=== PATIENT | male | born 1945 | race Caucasian/White ===

== ENCOUNTER → 2018-04-19 09:13 | Outpatient (CLI) | payer OTHER, SELFPAY ==
[2018-04-19 11:24] LABS: Add Manual Diff / Slide Review NO; Basophils Percent Auto 0.2 % (0-2); Eosinophils Percent Auto 1.3 % (2-4); Hematocrit 41.1 % (41-53); Hemoglobin 13.8 g/dL (13.5-17.5); Lymphocytes Percent Auto 12.7 % (25-40); Mean Corpuscular HGB Conc 33.5 % (30-36); Mean Corpuscular Hemoglobin 32.1 PG (26-34); Mean Corpuscular Volume 95.6 fL (80-100); Monocytes Percent Auto 8.7 % (3-14); Neutrophils Absolute Auto 7700 /uL (3000-5900); Neutrophils Percent Auto 77.1 % (50-75); Platelet Count 183 X10^3/uL (150-400); Red Cell Distribution Width 13.4 % (11.6-14.8)
[2018-04-19 12:00] LABS: Alanine Aminotransferase 22 IU/L (21-72); Albumin 3.9 g/dL (3.5-5.0); Albumin Globulin Ratio 1.4 (1.0-2.8); Alkaline Phosphatase 89 U/L (38-126); Aspartate Aminotransferase 23 IU/L (17-59); BUN Creatinine Ratio 21.8 (6-22); Bilirubin Total 1.2 mg/dL (0.2-1.3); Blood Urea Nitrogen 24 mg/dL (9-20); Calcium 9.5 mg/dL (8.4-10.2); Carbon Dioxide 33 mmol/L (22-32); Chloride 102 mmol/L (98-107); Cholesterol 174 mg/dL (140-199); Estimated Glomerular Filt Rate > 60.0 mL/min (>60); Globulin 2.8 g/dL (1.7-4.1); Glucose 101 mg/dL (80-110); HDL Cholesterol 74 mg/dL (40-60); HEMOLYSIS < 15 (0-50); LDL Cholesterol Calculated 73 mg/dL (<100); Potassium 4.7 mmol/L (3.4-5.1); Sodium 144 mmol/L (137-145); Total Protein 6.7 g/dL (6.3-8.2); Triglycerides 134 mg/dL (35-150); Uric Acid 7.2 mg/dL (3.5-8.5)
[2018-04-19 12:08] LABS: Free T3, Triiodothyronine Free 3.54 pg/mL (2.77-5.27); Free T4, Direct Thyroxine 1.12 ng/dL (0.78-2.19)
[2018-04-19 12:22] LABS: Thyroid Stimulating Hormone 0.96 uIU/mL (0.47-4.68)
[2018-04-19 12:25] LABS: Prostate Specific Antigen Scrn 3.18 ng/mL (0.1-4.0)
== END ==
PROVIDERS: PCP Family Medicine; Visit Provider Family Medicine
DX: I48.91 Unspecified atrial fibrillation (principal)
CPT/HCPCS: 36415; 80053; 80061; 84439; 84443; 84481; 84550; 85025; G0103

== ENCOUNTER 2018-04-30 23:23 | Emergency (ER) | payer OTHER, SELFPAY ==
--- NOTE | 2018-04-30 23:26 | DI.RAD.S_ITS ---
PROCEDURE: XR ANKLE RT MIN 3V INDICATIONS: fall with ankle pain, heard a pop TECHNIQUE: 3 views of the ankle were acquired. COMPARISON: None. FINDINGS: Bones: No fractures or dislocations. Ankle mortise is normally aligned. No suspicious bony lesions. Calcaneal bone spurs. Soft tissues: No tibiotalar joint effusion. Achilles tendon appears normal. Soft tissue swelling is noted and ligamentous injury cannot be excluded. IMPRESSION: No fracture. No acute osseous lesion. If symptoms and/or clinical suspicion for pathology persists, further assessment with repeat radiographs (7-10 days) or advanced imaging (e.g. CT, MRI or bone scan) may be helpful. Dictated by: Kia Sales MD, PhD on 05/01/2018 at 8:42 Approved by: Kia Sales MD, PhD on 05/01/2018 at 8:43
[2018-04-30 23:32] VITALS: BP 148/84; PULSE 80; RESP 16; TEMP 36.6; O2SAT 94; BMI 24.3
--- NOTE | 2018-04-30 23:42 | ED_ITS ---
HPI - Extremity Injury (Lower) General Chief Complaint: Extremity Injury, Lower Stated Complaint: GLF, Rt Ankle Pain Time Seen by Provider: 04/30/18 23:26 Source: patient and family Mode of arrival: ambulatory Limitations: no limitations History of Present Illness HPI Narrative: 72-year-old former smoker with extensive cardiac history, on Coumadin presents by EMS for evaluation of right ankle pain. The patient slipped and fell and heard a pop in his ankle. He denies any head neck or back injury or pain. He has full recall of the event. He denies any chest pain or shortness of breath. He denies any symptoms bleeding to his fall states he was purely mechanical. He denies any numbness, tingling or weakness. He did not try to ambulate prior to contacting EMS. MD complaint: ankle injury Onset (ago): hour(s) Type of Injury: inversion Place: home Severity: mild Relieving factors: nothing Exacerbating factors: weight bearing and movement Context: fall Associated symptoms: snap/pop sensation Other symptoms: none Related Data Home Medications Medication Instructions Recorded Confirmed CHOLECALCIFEROL (VITAMIN D) 2,000 iu PO #0 08/17/11 04/09/18 Previous Rx's Medication Instructions Recorded [LIDOCAINE PATCH] 4 % TD PRN PRN #15 patch 08/07/16 Disabled Parking Permit 15ml #1 01/24/17 duloxetine [Cymbalta] 30 mg PO QDAY #30 cap 03/30/17 furosemide 40 mg PO QDAY #90 tab 07/31/17 [DICLOFENAC 10% GEL] gm TOPICAL BID #60 gm 10/10/17 ipratropium-albuterol [Combivent 1 puff INH QID PRN #1 inh 10/20/17 Respimat] albuterol sulfate [Proventil HFA] 1 - 2 puff INH Q6HP PRN #1 inh 10/26/17 hydrocodone 7.5 mg-acetaminophen See Label Instructions PO SEE 03/05/18 325 mg tablet INSTRUCTIONS PRN #120 tab warfarin 3 mg tablet 3 mg PO QDAY #90 tab 03/08/18 allopurinol 100 mg tablet 100 mg PO QDAY #90 tab 03/18/18 lisinopril 10 mg tablet 30 mg PO QDAY #90 tab 03/26/18 carvedilol 12.5 mg tablet 12.5 mg PO BID #270 tab 04/09/[address] #1 [id number] 04/09/18 tamsulosin 0.4 mg capsule 0.8 mg PO QDAY #90 cap 04/09/18 hydrocodone 10 mg-acetaminophen 1 tab PO Q4-6H PRN #90 tab 04/18/18 325 mg tablet lovastatin 20 mg PO HS #90 tab 04/24/18 Allergies Allergy/AdvReac Type Severity Reaction Status Date / Time No Known Drug Allergies Allergy Verified 04/09/18 10:33 Review of Systems Review of Systems All systems reviewed & are unremarkable except as noted in HPI and below Constitutional Denies chills, Denies fever(s), Denies lethargy and Denies weakness Eyes Denies change in vision, Denies eye discharge, Denies irritation and Denies loss of vision ENT Ears, Nose, Mouth, and Throat: Denies change in voice, Denies neck pain and Denies sore throat Cardiovascular Denies chest pain, Denies irregular heart rhythm, Denies lightheadedness, Denies palpitations, Denies dyspnea, Denies dyspnea on exertion and Denies orthopnea Respiratory Denies cough, Denies dyspnea, Denies dyspnea on exertion and Denies wheezing Gastrointestinal Gastrointestinal: Denies abdominal pain, Denies change in bowel habits, Denies diarrhea, Denies nausea and Denies vomiting Genitourinary Denies hematuria, Denies flank pain, Denies urinary incontinence and Denies urinary urgency Musculoskeletal Reports joint swelling, Reports limited range of motion and Denies neck pain Integumentary/Breasts Denies pruritus, Denies erythema, Denies rash and Denies wounds Neurologic Denies confusion, Denies loss of vision and Denies weakness Psychiatric Denies anxiety, Denies confusion, Denies depression, Denies homicidal ideation and Denies suicidal ideation Endocrine Denies palpitations Hematologic/Lymphatic Denies easy bruising Allergic/Immunologic Denies wheezing [facility] Medical History Acne (Chronic ~1956) Atrial fibrillation (Chronic ~2005) Diastolic heart failure (Chronic ~2009) Eczema (Chronic ~1976) GI bleeding (Chronic ~2012) Gout (Chronic ~2006) Recurrent sinusitis (Chronic ~2004) Skin cancer (Chronic ~2012) Vision disorder (Chronic ~1951) Chicken pox (Resolved ~1958) Fractures (Resolved ~1987) Herpes (Resolved ~1999) Mumps (Resolved ~1966) Surgical History Anesthesia (Resolved) Pacemaker (Resolved ~2010) History of hip replacement (~2004) History of hip replacement (~2005) History of tonsillectomy (~1951) Status post appendectomy (~1954) Status post hernia repair (~2010) Family History Father Heart disease Stroke Grandfather Heart disease Mother Heart disease Hypertension Grandfather Heart disease Grandmother Heart disease Brother No problems noted. Social History Smoking Status: Former smoker Exam Narrative Exam Narrative: GEN: AOx3 and in mild distress, GCS 15 HEAD: no swelling or tenderness EYES: Pupils are equal, round, and reactive to light and accommodation. Extraoccular muscles are intact bilaterally. There is no subconjunctival hemorrhage or exudate. CHEST: Lungs are clear to auscultation bilaterally and free of wheezes, rales, or rhonchi. Heart rate is regular rhythm, there are no murmurs, clicks, rubs, or gallops. There is no chest wall tenderness. ABD: Abdomen is soft and nontender. There is no guarding or rebound. Bowel sounds are normal in all 4 quadrants. There is no mass or organomegaly. EXT: Full but painful range of motion of right ankle. No obvious deformity, swelling. No numbness, tingling. Dorsalis pedis present. Tender to palpate over lateral malleolus. Chronic bilateral LE edema SKIN: Warm, pink, and dry. No erythema or rash Initial Vital Signs Initial Vital Signs: Vital Signs Temperature 97.8 F 04/30/18 23:32 Pulse Rate 80 04/30/18 23:32 Respiratory Rate 16 04/30/18 23:32 Blood Pressure 148/84 H 04/30/18 23:32 Pulse Oximetry 94 04/30/18 23:32 Procedures Orthopedic Splinting/Casting Injury #1: Side: right Lower Extremity Injury Location: ankle Lower Extremity Immobilizer: Ari wrap Course Orders Ordered: ED Orders 04/30/18 23:26 XR ankle RT min 3V Stat Vital Signs - 8 hr 10/09/18 23:32 Temperature 97.8 F Pulse Rate 80 Respiratory Rate 16 Blood Pressure 148/84 H Pulse Oximetry 94 MDM - Extremity Injury (Lower) Differential Diagnosis Likely ankle sprain and strain and ankle fracture Medical Records Attestation: I reviewed the patient's medical records. Lab Data Attestation: I reviewed the patient's lab results. Imaging Data Ankle Xray: Attestation: I personally reviewed and interpreted this imaging study as follows: My impression: No bony abnormality Discharge Plan Departure Patient Disposition: Home Clinical Impression: Ankle sprain Instructions: DI for Ankle Sprain Activity Restrictions/Additional Instructions: *You have been diagnosed with [ Right ankle sprain ] *What to do: *Take medications as directed: tylenol or motrin for pain *Follow up with your primary care provider in 2-3 days, call for an appointment. Let them know you were seen in the Emergency Department and that we ask that you be seen in follow up *Return to ER if you should have any new, worsening or concerning symptoms Prescriptions: No Action CHOLECALCIFEROL (VITAMIN D) 2,000 iu PO Qty: 0 RF: 0 [LIDOCAINE PATCH] 4 % TD PRN PRNQty: 15 RF: 5 Disabled Parking Permit Qty: 1 RF: 0 duloxetine [Cymbalta] 30 MG capsule,delayed release(DR/EC) 30 mg PO QDAY Qty: 30 RF: 5 furosemide 40 MG tablet 40 mg PO QDAY Qty: 90 RF: 3 [DICLOFENAC 10% GEL] Topical BID Qty: 60 RF: 0 ipratropium-albuterol [Combivent Respimat] 4 GM mist 1 puff INH QID PRNQty: 1 RF: 0 albuterol sulfate [Proventil HFA] 90 MCG/PUFF HFA aerosol inhaler 1 - 2 puff INH Q6HP PRNQty: 1 RF: 0 hydrocodone-acetaminophen [Gattman] 7.5-325 mg tablet See Label Instructions PO SEE INSTRUCTIONS PRN (Reason: pain) Qty: 120 RF: 0 warfarin [Coumadin] 3 mg tablet 3 mg PO QDAY Qty: 90 RF: 0 allopurinol 100 mg tablet 100 mg PO QDAY Qty: 90 RF: 0 lisinopril 10 mg tablet 30 mg PO QDAY Qty: 90 RF: 0 hydrocodone-acetaminophen 10-325 mg tablet 1 tab PO Q4-6H PRN (Reason: pain) Qty: 90 RF: 0 lovastatin 20 mg tablet 20 mg PO HS Qty: 90 RF: [address] Qty: 1 RF: 0 carvedilol [Coreg] 12.5 mg tablet 12.5 mg PO BID Qty: 270 RF: 3 tamsulosin [Flomax] 0.4 mg capsule 0.8 mg PO QDAY Qty: 90 RF: 3 Referrals: Michele Adams MD [Primary Care Provider] -
--- NOTE | 2018-05-02 19:43 | PC.NURSE ---
Attempted follow up phone call. No answer at this time.
== END 2018-05-01 00:10 | disposition home or self-care (01) ==
PROVIDERS: Emergency Provider Emergency Medicine; PCP Family Medicine
DX: S93.401A Sprain of unspecified ligament of right ankle, initial encounter (principal); W01.0XXA Fall on same level from slipping, tripping and stumbling without subsequent striking against object, initial encounter
CPT/HCPCS: 73610; 99282; 99283

== ENCOUNTER → 2018-06-07 08:48 | Outpatient (CLI) | payer OTHER, SELFPAY ==
[2018-06-07 10:28] LABS: INR 1.8 (0.9-1.3); Prothrombin Time 19.5 SECONDS (10.1-12.7)
== END ==
PROVIDERS: PCP Family Medicine; Visit Provider Family Medicine
DX: I48.91 Unspecified atrial fibrillation (principal); Z79.01 Long term (current) use of anticoagulants
CPT/HCPCS: 36415; 85610

== ENCOUNTER → 2018-12-26 09:10 | Outpatient (CLI) | payer OTHER, SELFPAY ==
[2018-12-26 11:56] LABS: Alanine Aminotransferase 14 IU/L (21-72); Albumin 4.3 g/dL (3.5-5.0); Albumin Globulin Ratio 1.6 (1.0-2.8); Alkaline Phosphatase 77 U/L (38-126); Aspartate Aminotransferase 28 IU/L (17-59); BUN Creatinine Ratio 18.3 (6-22); Bilirubin Total 1.1 mg/dL (0.2-1.3); Blood Urea Nitrogen 22 mg/dL (9-20); Calcium 9.4 mg/dL (8.4-10.2); Carbon Dioxide 33 mmol/L (22-32); Chloride 102 mmol/L (98-107); Cholesterol 216 mg/dL (140-199); Globulin 2.7 g/dL (1.7-4.1); Glucose 144 mg/dL (80-110); HDL Cholesterol 66 mg/dL (40-60); HEMOLYSIS < 15 (0-50); LDL Cholesterol Calculated 115 mg/dL (<100); Potassium 4.3 mmol/L (3.4-5.1); Sodium 142 mmol/L (137-145); Triglycerides 173 mg/dL (35-150)
== END ==
PROVIDERS: Family Provider Family Medicine; PCP Family Medicine; Visit Provider Internal Medicine Cardiovascular Disease
DX: E78.5 Hyperlipidemia, unspecified (principal)
CPT/HCPCS: 36415; 80053; 80061

== ENCOUNTER → 2019-11-17 08:56 | Outpatient (CLI) | payer OTHER, SELFPAY ==
[2019-11-17 09:30] LABS: Cholesterol 177 mg/dL (140-199); HDL Cholesterol 57 mg/dL (40-60); LDL Cholesterol Calculated 93 mg/dL (<100); Triglycerides 137 mg/dL (35-150)
== END ==
PROVIDERS: Family Provider Family Medicine; PCP Family Medicine; Referring Provider Family Medicine; Visit Provider Family Medicine
DX: E78.5 Hyperlipidemia, unspecified (principal)
CPT/HCPCS: 36415; 80061

== ENCOUNTER → 2019-12-11 09:11 | Outpatient (CLI) | payer OTHER, SELFPAY ==
--- NOTE | 2019-12-11 09:13 | DI.ECHO.S_ITS ---
[facility] +---------+ [facility] +---------+ : : [address] : : : : [id number] : : : : Phone: [phone]---------+ Echocardiogram Report + + :Name: REJI GARCIA Study Date: 12/11/2019 Height: 69 in : :[facility] Weight: 168 lb : : Gender: Male BSA: 1.9 m2 : :: 1945 Age: 74 yrs BP: 142/85 mmHg: :Reason For Study: atrial fibrillation : :Ordering Physician: Dr. 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 Left ventricular ejection fraction is estimated to be 45 +/- 5%. There has been no significant change in LVEF since the previous exam. The right ventricle is mildly dilated. The right ventricular systolic function is normal. There is a pacemaker lead in the right ventricle. There is moderate mitral regurgitation. Compared to the prior echo study, there has been no change in the severity of mitral regurgitation. There is moderate tricuspid regurgitation. Compared to the prior echo exam, there has been a decrease in TR severity. The right ventricular systolic pressure is estimated to be at least 26 mmHg based on an estimated right atrial pressure of 3 mm Hg. Compared to the prior echo exam, there has been a decrease in the severity of pulmonary hypertension. Procedure: A two-dimensional transthoracic echocardiogram with color flow and Doppler was performed. The study quality was technically adequate. Comparison is made with the echocardiogram of 09/13/2017. The patient was in atrial fibrillation with heart rates between 61-75 bpm during the exam. Left Ventricle: The left ventricle is normal in size and wall thickness. There is no thrombus. Left ventricular ejection fraction is estimated to be 45 +/- 5%. There has been no significant change since the previous exam. There is a slight dyssynchronous contraction pattern due to the paced rhythm. There is mild global hypokinesis of the left ventricle. Diastolic function could not be accurately assessed due to atrial fibrillation. Right Ventricle: There is a pacemaker lead in the right ventricle. The right ventricle is mildly dilated. The right ventricular systolic function is normal. Atria: Both atria are severely dilated. Both atria have remained unchanged in size since the prior echo exam. There is no Doppler evidence for an interatrial shunt. Mitral Valve: The mitral valve leaflets appear mildly thickened, but open well. There is mild mitral annular calcification. There is moderate mitral regurgitation. Compared to the prior echo study, there has been no change in the severity of mitral regurgitation. Aortic Valve: The aortic valve is trileaflet. The aortic valve opens well. The aortic valve is slightly calcified. There is no aortic valve stenosis. There is mild aortic regurgitation. Tricuspid Valve: The tricuspid annulus is dilated. There is moderate tricuspid regurgitation. The right ventricular systolic pressure is estimated to be at least 26 mmHg based on an estimated right atrial pressure of 3 mm Hg. Compared to the prior echo exam, there has been a decrease in TR severity. Compared to the prior echo exam, there has been a decrease in the severity of pulmonary hypertension. Pulmonic Valve: The pulmonic valve is not well seen, but is grossly normal. There is trace pulmonic regurgitation. Great Vessels: The aortic root is mildly dilated. The ascending aorta is mildly enlarged. There has been no significant change since the previous study. The IVC is of normal diameter and collapses greater than 50% with a sniff. This suggests a low right atrial pressure of 3 mm Hg. Pericardium/ Pleura There is no pericardial effusion. There is no pleural effusion. MMode/2D Measurements & Calculations LVIDd: 5.3 cm LVOT diam: 2.1 cm LVIDs: 3.9 cm Ao root diam: 4.3 cm FS: 24.9 % asc Aorta Diam: 3.6 cm EPSS: 1.3 cm Ao Arch Diam (Prox Trans): 2.6 cm IVSd: 0.99 cm LVPWd: 0.72 cm LV lopez. diameter/BSA (cm/m^2): 2.7 LV sys. diameter/BSA (cm/m^2): 2.1 LA A2 area: 37.5 cm2 RA long axis: 7.2 cm LA A4 area: 29.9 cm2 RA area: 34.3 cm2 LA length (vol): 6.9 cm RA vol: 137.8 ml LA vol: 137.4 ml RA : 71.8 ml/m2 LA vol index: 71.7 ml/m2 IVC diam: 1.8 cm RVD1 (basal): 4.2 cm TAPSE: 2.5 cm Doppler Measurements & Calculations Ao V2 max: 91.8 cm/sec LVOT Max Chuy: 63.0 cm/sec Ao V2 mean: 56.6 cm/sec LV V1 max P.6 mmHg Ao max P.4 mmHg LV V1 VTI: 12.0 cm Ao mean P.6 mmHg HARESH(I,D): 2.6 cm2 Ao V2 VTI: 16.1 cm HARESH(V,D): 2.4 cm2 sev ratio: 0.74 HARESH indexed to BSA (cm^2/m^2): 1.4 MV E max chuy: 79.9 cm/sec TR max chuy: 240.5 cm/sec MV A max chuy: 1.9 cm/sec TR max P.2 mmHg MV E/A: 41.4 PA V2 max: 53.8 cm/sec Med Peak E' Chuy: 12.9 cm/sec PA V2 mean: 33.8 cm/sec E/E' med: 6.2 PA mean P.55 mmHg Lat Peak E' Chuy: 14.0 cm/sec E/E' lat: 5.7 E/e' average: 5.9 MV dec time: 0.16 sec SV(LVOT): 42.5 ml Reading Physician:12:48 PM
== END ==
PROVIDERS: Family Provider Family Medicine; PCP Family Medicine; Referring Provider Family Medicine; Visit Provider Family Medicine
DX: I08.3 Combined rheumatic disorders of mitral, aortic and tricuspid valves (principal); I77.810 Thoracic aortic ectasia; I48.91 Unspecified atrial fibrillation; Z95.0 Presence of cardiac pacemaker
CPT/HCPCS: 93306

== ENCOUNTER → 2020-02-23 10:39 | Outpatient (CLI) | payer OTHER, SELFPAY ==
[2020-02-23 11:13] LABS: Add Manual Diff / Slide Review NO; Basophils Absolute Auto 0 /uL (0-100); Basophils Percent Auto 0.7 % (0-2); Eosinophils Absolute Auto 300 /uL (0-450); Hematocrit 41.7 % (41-53); Hemoglobin 14.1 g/dL (13.5-17.5); Lymphocytes Absolute Auto 1500 /uL (1100-4500); Lymphocytes Percent Auto 25.1 % (25-40); Mean Corpuscular HGB Conc 33.9 % (30-36); Mean Corpuscular Hemoglobin 32.4 PG (26-34); Mean Corpuscular Volume 95.8 fL (80-100); Monocytes Absolute Auto 800 /uL (0-900); Monocytes Percent Auto 12.3 % (3-14); Neutrophils Absolute Auto 3500 /uL (1500-7000); Neutrophils Percent Auto 56.9 % (50-75); Platelet Count 127 X10^3/uL (150-400); Red Blood Cell Count 4.35 X10^6/uL (4.5-5.9); Red Cell Distribution Width 14.1 % (11.6-14.8); White Blood Cell Count 6.1 X10^3/uL (4.5-11.0)
[2020-02-23 11:50] LABS: Alanine Aminotransferase 15 IU/L (<50); Albumin 4.2 g/dL (3.5-5.0); Albumin Globulin Ratio 1.8 (1.0-2.8); Alkaline Phosphatase 73 U/L (38-126); Amylase 67 U/L (30-110); Aspartate Aminotransferase 27 IU/L (17-59); BUN Creatinine Ratio 21.6 (6-22); Bilirubin Total 1.1 mg/dL (0.2-1.3); Blood Urea Nitrogen 24 mg/dL (9-20); Calcium 9.3 mg/dL (8.4-10.2); Carbon Dioxide 30 mmol/L (22-32); Chloride 104 mmol/L (98-107); Estimated Glomerular Filt Rate > 60.0 mL/min (>60); Globulin 2.3 g/dL (1.7-4.1); Glucose 111 mg/dL (80-110); HEMOLYSIS < 15 (0-50); Lipase 110 U/L (23-300); Sodium 140 mmol/L (137-145); Total Protein 6.5 g/dL (6.3-8.2)
== END ==
PROVIDERS: Family Provider Family Medicine; PCP Family Medicine; Referring Provider Family Medicine; Visit Provider Family Medicine
DX: R10.9 Unspecified abdominal pain (principal)
CPT/HCPCS: 36415; 80053; 82150; 83690; 85025

== ENCOUNTER → 2020-03-03 08:30 | Outpatient (CLI) | payer OTHER, SELFPAY ==
--- NOTE | 2020-03-03 09:08 | DI.CT.S_ITS ---
PROCEDURE: CT ABDOMEN PELVIS W CON INDICATIONS: Left flank pain TECHNIQUE: After the administration of intravenous contrast, 5 mm thick sections acquired from the diaphragm to the symphysis. 5 mm coronal and sagittal reformats were acquired. For radiation dose reduction, the following was used: automated exposure control, adjustment of mA and/or kV according to patient size. COMPARISON: None. FINDINGS: Image quality: Excellent. ABDOMEN: Lung bases: Lung bases are clear. Heart size is enlarged. Pacemaker leads are noted. Solid organs: Liver is normal in size and enhancement. Mild hepatic steatosis is seen. Gallbladder is within normal limits. Biliary system is non dilated. Pancreas enhances normally. Spleen is normal in size and enhancement. No adrenal nodules. Kidneys demonstrate normal size and enhancement, without hydronephrosis. Multiple bilateral renal cysts are seen measures up to 3 centimeters in size in lower pole of right kidney and up to 2.8 centimeters in size in lower pole of left kidney. Peritoneum and bowel: Bowel loops demonstrate normal wall thickness and caliber. No free fluid or air. There is a small hiatal hernia. Mild fecal stasis in the colon is seen. [id number] colonic diverticulosis is noted, no CT evidence of acute diverticulitis. Nodes and vessels: No retroperitoneal or mesenteric adenopathy by size criteria. Aorta and inferior vena cava are normal in size. Moderate amount of atherosclerotic calcifications are seen. Miscellaneous: No ventral hernias. PELVIS: Genitourinary: Urinary bladder is distended with mild diffuse bladder wall thickening and multiple bladder diverticuli bilaterally. No discrete bladder wall mass is seen. Miscellaneous: No inguinal hernias or adenopathy. Bones: Patient is status post bilateral total hip arthroplasty with significant beam hardening artifacts limits evaluation of pelvis. No acute fracture or dislocation. No suspicious bony lesions. No vertebral body compression fractures. Degenerative disc disease throughout lower thoracic and lumbar spine is seen. Grade 1 anterolisthesis of L4 on L5 is noted. IMPRESSION: 1. Bilateral renal cysts. No obstructing stone or hydronephrosis. Normal appearing bilateral ureters. 2. Distended urinary bladder with mild diffuse bladder wall thickening and multiple bladder wall diverticuli suggestive of chronic urinary outlet obstruction. Urological correlation is recommended. 3. No bowel obstruction. No free fluid or free air. Small hiatal hernia and mild constipation. Colonic diverticulosis with no evidence of acute diverticulitis. 4. Hepatic steatosis. 5. Prior bilateral total hip arthroplasty. Dictated by: Seymour Ribeiro M.D. on 03/03/2020 at 9:29 Approved by: Seymour Ribeiro M.D. on 03/03/2020 at 9:45
== END ==
PROVIDERS: Family Provider Family Medicine; PCP Family Medicine; Referring Provider Family Medicine; Visit Provider Family Medicine
DX: R10.9 Unspecified abdominal pain (principal); N28.1 Cyst of kidney, acquired; N32.89 Other specified disorders of bladder; K44.9 Diaphragmatic hernia without obstruction or gangrene; K59.00 Constipation, unspecified; K57.90 Diverticulosis of intestine, part unspecified, without perforation or abscess without bleeding; K76.0 Fatty (change of) liver, not elsewhere classified; Z96.643 Presence of artificial hip joint, bilateral
CPT/HCPCS: 74177; Q9967

== ENCOUNTER → 2020-03-12 09:08 | Outpatient (CLI) | payer OTHER, SELFPAY ==
[2020-03-13 09:30] LABS: COVID19 Sendout Not Detected (Not Detect)
== END ==
PROVIDERS: Family Provider Family Medicine; PCP Family Medicine; Visit Provider Physician Assistant
DX: Z11.59 Encounter for screening for other viral diseases (principal)
CPT/HCPCS: 87635

== ENCOUNTER 2020-03-15 06:42 | Day surgery (SDC) | payer OTHER, SELFPAY ==
[2020-03-15 07:14] VITALS: BP 165/91; PULSE 61; RESP 17; TEMP 36.3; O2SAT 99; BMI 25.8
[2020-03-15] MEDS: LACTATED RINGERS 1,000 ML 200 ML IV (07:33)
--- NOTE | 2020-03-15 07:44 | P.HP_ITS ---
History of Present Illness History of Present Illness Date Patient Seen: 03/15/20 Time Patient Seen: 07:44 Chief complaint: [facility] Narrative: The patient presents for colorectal sreening. Their most recent colonoscopy was 6 years ago that demonstrated adenomatous polyps which were endoscopically resected. No personal or family history of colon cancer. On further history denies any recent gastrointestinal symptoms. No nausea, vomiting, abdominal pain, loss of appetite, unexplained weight loss, change in bowel habits, diarrhea, constipation, melena, hematochezia, or bright red blood per rectum. Patient History Medical History Acne (Chronic ~1956) Atrial fibrillation (Chronic ~2005) Chicken pox (Resolved ~1958) Diastolic heart failure (Chronic ~2009) Eczema (Chronic ~1976) Fractures (Resolved ~1987) GI bleeding (Chronic ~2012) Gout (Chronic ~2006) Herpes (Resolved ~1999) Mumps (Resolved ~1966) Recurrent sinusitis (Chronic ~2004) Skin cancer (Chronic ~2012) Vision disorder (Chronic ~1951) Surgical History Anesthesia (Resolved) History of hip replacement (~2004) History of hip replacement (~2005) History of tonsillectomy (~1951) Pacemaker (Resolved ~2010) Status post appendectomy (~1954) Status post hernia repair (~2010) Family & Social History Family History Father Heart disease Stroke Grandfather Heart disease Mother Heart disease Hypertension Grandfather Heart disease Grandmother Heart disease Brother No problems noted. Social History: household members significant other Tobacco & Substance use: Smoking Status Former smoker alcohol intake current alcohol intake frequency 0-2 drinks per day Substance Use Type does not use Meds Home Medications and Allergies Home Medications Medication Instructions Recorded Confirmed Type cholecalciferol (vitamin D3) 50 mcg PO DAILY #0 08/17/11 03/15/20 History [Vitamin D3] duloxetine [Cymbalta] 30 mg PO QDAY #30 cap 03/30/17 03/15/20 Rx lisinopril 10 mg tablet 30 mg PO QDAY #90 tab 06/24/18 03/15/20 Rx Disabled [address] permit #1 ea 04/17/19 02/23/20 Rx allopurinol 100 mg tablet See Rx Instructions .ROUTE 04/21/19 03/15/20 Rx .COMPLEX #90 tablet carvedilol 12.5 mg tablet See Rx Instructions .ROUTE 08/11/19 03/15/20 Rx .COMPLEX #270 tablet tamsulosin 0.4 mg capsule 0.8 mg PO QDAY #90 cap 11/14/19 03/15/20 Rx warfarin 3 mg tablet 3 mg PO QDAY #90 tab 11/14/19 03/15/20 Rx furosemide 40 mg tablet 80 mg PO QAM #90 tab 11/21/19 03/15/20 Rx lovastatin 20 mg tablet See Rx Instructions .ROUTE 02/06/20 03/15/20 Rx .COMPLEX #90 tablet hydrocodone 10 mg-acetaminophen 1 tab PO Q4-6H PRN #90 tab 02/08/20 03/15/20 Rx 325 mg tablet cyanocobalamin (vitamin B-12) 1,000 mcg PO DAILY 03/15/20 03/15/20 History [Vitamin B-12] Allergies Allergy/AdvReac Type Severity Reaction Status Date / Time No Known Drug Allergies Allergy Verified 03/15/20 07:07 Review of Systems Review of Systems Narrative: A 10 point review of systems is negative except as noted in the HPI Exam Vital Signs (past 8 hours): - 03/15/20 07:14 Temperature 97.4 F L Pulse Rate 61 Respiratory Rate 17 Blood Pressure 165/91 H Pulse Oximetry 99 Oxygen Delivery Method Room Air Narrative Exam Narrative: General-no acute distress, well nourished adult male HEENT-moist mucous membranes, no scleral icterus Neck-supple, no lymphadenopathy Chest- non labored respirations, clear to auscultation bilaterally Cardiac-regular rate no peripheral edema Abdomen-soft, nontender, non distended Extremities-warm, well perfused Neurological-alert and oriented, no focal deficits Assessment & Plan Assessment and plan (1) Screening for colon cancer: Status: Acute Assessment & Plan narrative: The patient requires colorectal screening and col onoscopy is recommended. Technical details were discussed. Risks, benefits, alternatives explained. Risks including but not limited to myocardial infarction, aspiration, bleeding, pain, missed lesion, incomplete examination, need for further radiographic studies, colonic perforation, and need for major abdominal surgery were discussed. All questions were answered to their satisfaction, and they are in agreement with this plan. COVID-19 COVID-19 status: Negative
[2020-03-15] MEDS: fentaNYL 250 MCG/5 ML INJ IV (08:03)
[2020-03-15] MEDS: MIDAZOLAM 5 MG/5 ML VIAL IV (08:03)
--- NOTE | 2020-03-15 08:14 | PM.OP.ENDO ---
Operative Date/Time/Diagnoses Date of procedure: 03/15/20 Time of procedure: 08:14 Pre-op diagnosis: Screening colonoscopy Post-op diagnosis: same Procedure & Clinicians Study performed: Colonoscopy Same procedure as scheduled: Yes Indications: 74-year-old man last colonoscopy 6 years ago demonstrated adenomatous polyps which were resected. Surgeon: Bairon Cummings Procedure Notes Procedure in detail: Patient placed in left lateral recumbent position. Time out was performed. Procedural sedation was administered with Versed and Fentanyl. Examination began with a thorough inspection of the perianal area there was no evidence of fissures, fistulae, external hemorrhoids or cutaneous malignancy. The colonoscopy scope was then placed into the rectum the the lumen was insufflated with air. The scope was carefully advanced forward. Ultimately the cecum was intubated and confirmed by identification of the ileocecal valve and the confluence of the taenia. The scope was then slowly withdrawn examining colon thoroughly in all directions. In the rectum the rectal columns were identified and retroflexion of the scope was performed for inspection of the distal rectum and anal canal. The colonoscopy was notable for the followin. Quality of the preparation-fair 2. No masses or polyps 3. Garcia diverticulosis Scope withdrawal time: 6 Sedation minutes: 22 Findings: diverticulosis and other findings Specimen(s): none sent Complications: none Impression: Diverticulosis Post-procedure Recommendations: Colonscopy in 10 years and High fiber diet Disposition: same day surgery
[2020-03-15 08:20] VITALS: BP 128/84; PULSE 67; RESP 17; TEMP 36.2; O2SAT 94
[2020-03-15 08:28] VITALS: BP 104/70; PULSE 74; RESP 12; O2SAT 93
[2020-03-15 08:33] VITALS: BP 117/71; PULSE 68; RESP 14; O2SAT 93
[2020-03-15 08:44] VITALS: BP 137/89; PULSE 71; RESP 20; TEMP 36.7; O2SAT 94
--- NOTE | 2020-03-15 09:16 | SUR.PHASEII ---
Verified ok for patient to restart coumadin today with Dr. Cummings.
== END 2020-03-15 09:09 | disposition home or self-care (01) ==
PROVIDERS: Family Provider Family Medicine; PCP Family Medicine; Referring Provider Family Medicine; Visit Provider Surgery
PROC: 0DJD8ZZ Inspection of Lower Intestinal Tract, Via Natural or Artificial Opening Endoscopic (ICD-10-PCS; CPT 45378; principal; 2020-03-15 07:45)
DX: Z12.11 Encounter for screening for malignant neoplasm of colon (principal); Z86.010 Personal history of colon polyps; I48.91 Unspecified atrial fibrillation; K57.30 Diverticulosis of large intestine without perforation or abscess without bleeding
CPT/HCPCS: G0105; 99152; J2250; J3010

== ENCOUNTER → 2020-07-14 10:05 | Outpatient (CLI) | payer OTHER, SELFPAY ==
[2020-07-14 10:55] LABS: BUN Creatinine Ratio 23.9 (6-22); Blood Urea Nitrogen 28 mg/dL (9-20); Calcium 9.4 mg/dL (8.4-10.2); Carbon Dioxide 31 mmol/L (22-32); Chloride 102 mmol/L (98-107); Estimated Glomerular Filt Rate > 60.0 mL/min (>60); Glucose 121 mg/dL (80-110); HEMOLYSIS < 15 (0-50); Magnesium 1.9 mg/dL (1.6-2.3); Potassium 3.6 mmol/L (3.4-5.1); Sodium 139 mmol/L (137-145)
== END ==
PROVIDERS: Family Provider Family Medicine; PCP Student in an Organized Health Care Education/Training Program; Referring Provider Family Medicine; Visit Provider Family Medicine
DX: I10 Essential (primary) hypertension (principal)
CPT/HCPCS: 36415; 80048; 83735

== ENCOUNTER → 2020-09-17 08:32 | Outpatient (CLI) | payer OTHER, SELFPAY ==
[2020-09-17 10:08] LABS: Alanine Aminotransferase 15 IU/L (<50); Albumin 4.1 g/dL (3.5-5.0); Albumin Globulin Ratio 1.5 (1.0-2.8); Alkaline Phosphatase 76 U/L (38-126); Aspartate Aminotransferase 27 IU/L (17-59); BUN Creatinine Ratio 28.7 (6-22); Bilirubin Total 0.9 mg/dL (0.2-1.3); Blood Urea Nitrogen 50 mg/dL (9-20); Calcium 9.1 mg/dL (8.4-10.2); Carbon Dioxide 34 mmol/L (22-32); Chloride 101 mmol/L (98-107); Cholesterol 211 mg/dL (140-199); Estimated Glomerular Filt Rate 38.3 mL/min (>60); Globulin 2.7 g/dL (1.7-4.1); Glucose 107 mg/dL (80-110); HDL Cholesterol 47 mg/dL (40-60); HEMOLYSIS < 15 (0-50); LDL Cholesterol Calculated 111 mg/dL (<100); Magnesium 2.1 mg/dL (1.6-2.3); Potassium 3.8 mmol/L (3.4-5.1); Sodium 138 mmol/L (137-145); Total Protein 6.8 g/dL (6.3-8.2); Triglycerides 263 mg/dL (35-150)
== END ==
PROVIDERS: Family Provider Family Medicine; PCP Student in an Organized Health Care Education/Training Program; Referring Provider Internal Medicine Cardiovascular Disease; Visit Provider Internal Medicine Cardiovascular Disease
DX: I48.20 Chronic atrial fibrillation, unspecified (principal)
CPT/HCPCS: 36415; 80053; 80061; 83735

== ENCOUNTER → 2020-11-30 10:45 | Outpatient (CLI) | payer OTHER, SELFPAY ==
[2020-11-30 11:53] LABS: Blood Urea Nitrogen 22 mg/dL (9-20); Calcium 9.4 mg/dL (8.4-10.2); Carbon Dioxide 24 mmol/L (22-32); Chloride 106 mmol/L (98-107); Estimated Glomerular Filt Rate > 60.0 mL/min (>60); Glucose 100 mg/dL (80-110); HEMOLYSIS < 15 (0-50); Sodium 139 mmol/L (137-145)
== END ==
PROVIDERS: Family Provider Family Medicine; PCP Student in an Organized Health Care Education/Training Program; Referring Provider Student in an Organized Health Care Education/Training Program; Visit Provider Student in an Organized Health Care Education/Training Program
DX: I10 Essential (primary) hypertension (principal); Z79.899 Other long term (current) drug therapy
CPT/HCPCS: 36415; 80048

== ENCOUNTER → 2021-06-07 14:08 | Outpatient (CLI) | payer OTHER, SELFPAY ==
--- NOTE | 2021-06-07 14:09 | DI.ECHO.S_ITS ---
[facility] +---------+ : : [address] : [address] : : : : [id number] : : : : Phone: [phone]+ Echocardiogram Report + + :Name: REJI GARCIA Study Date: 06/07/2021 Height: 69 in : :[facility] ReadingLocation: Weight: 185 lb : : Gender: Male BSA: 2.0 m2 : :: 1945 Age: 75 yrs BP: 144/77 mmHg: :Reason For Study: TRICUSPID REGURGITATION : :Ordering Physician: MIGDALIA, : :ALLYSON Performed By: Lisa Taylor : :Referring: ALLYSON NEGRON : + + Interpretation Summary The left ventricle is normal in size and wall thickness. The ejection fraction is estimated to be 45-50%. There has been no significant change in LVEF since the previous exam. The right ventricle is mildly dilated. There is a pacemaker lead in the right ventricle. The right ventricular systolic function is normal. There is moderate mitral regurgitation. Compared to the prior echo study, there has been no change in the severity of mitral regurgitation. There is moderate tricuspid regurgitation. Compared to the prior echo exam, there has been no change in TR severity. The right ventricular systolic pressure is estimated to be at least 28 mmHg based on an estimated right atrial pressure of 3 mm Hg. The ascending aorta is mildly enlarged. 3.7 cm in diameter. Previously 3.6 cm. Procedure: A two-dimensional transthoracic echocardiogram with color flow and Doppler was performed. The study quality was technically adequate. Comparison is made with the echocardiogram of 12/11/2019. The heart rate ranged between 62-76 bpm during the study. The patient was in atrial fibrillation with controlled ventricular rate during the exam. Left Ventricle: The left ventricle is normal in size and wall thickness. There is no thrombus. The ejection fraction is estimated to be 45-50%. There has been no significant change since the previous exam. There is mild global hypokinesis of the left ventricle. There is a mild dyssynchronous contraction pattern, consistent with a conduction abnormality. E/E' med: 6.6. Diastolic function could not be accurately assessed due to atrial fibrillation. Right Ventricle: The right ventricle is mildly dilated. There is a pacemaker lead in the right ventricle. The right ventricular systolic function is normal. Atria: The left atrium is severely dilated. Both atria have remained unchanged in size since the prior echo exam. There is severe biatrial enlargement. The right atrium is severely dilated. There is no Doppler evidence for an interatrial shunt. Mitral Valve: The mitral valve leaflets appear mildly thickened, but open well. There is mild mitral annular calcification. The mitral valve chordae are thickened and/or calcified. There is moderate mitral regurgitation. Compared to the prior echo study, there has been no change in the severity of mitral regurgitation. Aortic Valve: The aortic valve is slightly calcified. The aortic valve is trileaflet. The aortic valve opens well. There is no aortic valve stenosis. There is mild aortic regurgitation. Compared to the prior echo study, there has been no change in the severity of aortic regurgitation. Tricuspid Valve: The tricuspid valve leaflets are thin and pliable. There is moderate tricuspid regurgitation. The right ventricular systolic pressure is estimated to be at least 28 mmHg based on an estimated right atrial pressure of 3 mm Hg. Compared to the prior echo exam, there has been no change in TR severity. Pulmonic Valve: The pulmonic valve leaflets are thin and pliable; valve motion is normal. There is mild pulmonic regurgitation. Great Vessels: The aortic root is normal size. The ascending aorta is mildly enlarged. The IVC is of normal diameter and collapses greater than 50% with a sniff. This suggests a low right atrial pressure of 3 mm Hg. Pericardium/ Pleura There is no pericardial effusion. There is no pleural effusion. MMode/2D Measurements & Calculations LVIDd: 5.0 cm LVOT diam: 2.4 cm LVIDs: 3.9 cm Ao root diam: 3.9 cm FS: 23.1 % asc Aorta Diam: 3.7 cm IVSd: 1.1 cm Ao Arch Diam (Prox Trans): 2.7 cm LVPWd: 0.84 cm LV lopez. diameter/BSA (cm/m^2): 2.5 LV sys. diameter/BSA (cm/m^2): 1.9 LA A2 area: 30.9 cm2 RA long axis: 6.6 cm LA A4 area: 32.9 cm2 RA area: 33.1 cm2 LA length (vol): 6.9 cm RA vol: 140.0 ml LA vol: 124.5 ml RA : 70.0 ml/m2 LA vol index: 62.3 ml/m2 IVC diam: 1.9 cm RVD1 (basal): 4.4 cm TAPSE: 2.0 cm Doppler Measurements & Calculations Ao V2 max: 97.6 cm/sec LVOT Max Chuy: 64.7 cm/sec Ao V2 mean: 71.8 cm/sec LV V1 max P.7 mmHg Ao max P.8 mmHg LV V1 VTI: 13.3 cm Ao mean P.2 mmHg HARESH(I,D): 3.1 cm2 Ao V2 VTI: 19.3 cm HARESH(V,D): 3.0 cm2 sev ratio: 0.69 HARESH indexed to BSA (cm^2/m^2): 1.6 MV E max chuy: 89.0 cm/sec TR max chuy: 248.1 cm/sec MV A max chuy: 2.0 cm/sec TR max P.6 mmHg MV E/A: 43.9 PA V2 max: 73.3 cm/sec Med Peak E' Chuy: 13.5 cm/sec PA V2 mean: 52.5 cm/sec E/E' med: 6.6 PA mean P.2 mmHg Lat Peak E' Chuy: 15.2 cm/sec PA pr(Accel): 27.6 mmHg E/E' lat: 5.9 E/e' average: 6.2 MV dec time: 0.21 sec SV(LVOT): 60.3 ml Reading Physician:12:49 PM
== END ==
PROVIDERS: Family Provider Family Medicine; PCP Student in an Organized Health Care Education/Training Program; Referring Provider Internal Medicine Cardiovascular Disease; Visit Provider Internal Medicine Cardiovascular Disease
DX: I08.3 Combined rheumatic disorders of mitral, aortic and tricuspid valves (principal); Z95.0 Presence of cardiac pacemaker; I77.89 Other specified disorders of arteries and arterioles
CPT/HCPCS: 93306

== ENCOUNTER → 2021-07-12 08:44 | Outpatient (CLI) | payer OTHER, SELFPAY ==
[2021-07-12 09:37] LABS: Prothrombin Time 46.7 SECONDS (10.1-12.7)
== END ==
PROVIDERS: Family Provider Family Medicine; PCP Student in an Organized Health Care Education/Training Program; Referring Provider Student in an Organized Health Care Education/Training Program; Visit Provider Student in an Organized Health Care Education/Training Program
DX: Z79.01 Long term (current) use of anticoagulants (principal)
CPT/HCPCS: 36415; 85610

== ENCOUNTER → 2021-07-21 09:18 | Outpatient (CLI) | payer OTHER, SELFPAY ==
[2021-07-21 10:04] LABS: Prothrombin Time 22.5 SECONDS (10.1-12.7)
== END ==
PROVIDERS: Family Provider Family Medicine; PCP Student in an Organized Health Care Education/Training Program; Referring Provider Student in an Organized Health Care Education/Training Program; Visit Provider Student in an Organized Health Care Education/Training Program
DX: Z79.01 Long term (current) use of anticoagulants (principal)
CPT/HCPCS: 36415; 85610

== ENCOUNTER 2021-07-28 16:34 | Emergency (ER) | payer OTHER, SELFPAY ==
[2021-07-28 21:14] VITALS: BP 170/92; PULSE 84; O2SAT 97
[2021-07-28 21:30] VITALS: BP 172/91; PULSE 72; O2SAT 95
--- NOTE | 2021-07-28 21:40 | DI.RAD.S_ITS ---
PROCEDURE: XR CHEST 1V INDICATIONS: leg swelling TECHNIQUE: One view of the chest was acquired. COMPARISON: [facility], CR, XR CHEST 1V, 11/21/2017, 21:25. FINDINGS: Surgical changes and devices: Left chest wall single lead AICD redemonstrated. Lungs and pleura: Visualized lungs are clear. The medial right lung apex is partially obscured by the patient's neck soft tissues. No pleural effusions or definite pneumothorax. Mediastinum: Mediastinal contours are unchanged. Heart size is enlarged. Bones and chest wall: No suspicious bony lesions. Overlying soft tissues appear unremarkable. IMPRESSION: 1. No definite acute cardiopulmonary disease. 2. No definite radiographic evidence of pulmonary edema. Dictated by: Bradly Adams M.D. on 07/28/2021 at 22:58 Approved by: Bradly Adams M.D. on 07/28/2021 at 22:59
[2021-07-28 21:57] LABS: Add Manual Diff / Slide Review NO; Basophils Absolute Auto 100 /uL (0-100); Basophils Percent Auto 0.7 % (0-2); Eosinophils Absolute Auto 300 /uL (0-450); Eosinophils Percent Auto 3.3 % (2-4); Hematocrit 38.1 % (41-53); Hemoglobin 12.9 g/dL (13.5-17.5); Lymphocytes Absolute Auto 1900 /uL (1100-4500); Lymphocytes Percent Auto 22.5 % (25-40); Mean Corpuscular HGB Conc 33.9 % (30-36); Mean Corpuscular Hemoglobin 32.2 PG (26-34); Mean Corpuscular Volume 95.1 fL (80-100); Monocytes Absolute Auto 1000 /uL (0-900); Monocytes Percent Auto 11.7 % (3-14); Neutrophils Absolute Auto 5300 /uL (1500-7000); Neutrophils Percent Auto 61.8 % (50-75); Platelet Count 162 X10^3/uL (150-400); Red Blood Cell Count 4.01 X10^6/uL (4.5-5.9); Red Cell Distribution Width 14.8 % (11.6-14.8); White Blood Cell Count 8.5 X10^3/uL (4.5-11.0)
[2021-07-28 22:00] VITALS: BP 176/86; PULSE 78; O2SAT 96
[2021-07-28 22:01] LABS: INR 2.2 (0.9-1.3); Prothrombin Time 25.7 SECONDS (10.1-12.7)
[2021-07-28 22:04] LABS: PTT Partial Thromboplastin Tim 39 SECONDS (26.4-36.2)
[2021-07-28 22:05] LABS: Alanine Aminotransferase 14 IU/L (<50); Albumin 4.2 g/dL (3.5-5.0); Albumin Globulin Ratio 1.4 (1.0-2.8); Alkaline Phosphatase 124 U/L (38-126); Aspartate Aminotransferase 32 IU/L (17-59); BUN Creatinine Ratio 21.3 (6-22); Bilirubin Total 1.5 mg/dL (0.2-1.3); Blood Urea Nitrogen 26 mg/dL (9-20); Calcium 9.4 mg/dL (8.4-10.2); Carbon Dioxide 28 mmol/L (22-32); Chloride 105 mmol/L (98-107); Creatine Kinase 84 U/L (55-170); Estimated Glomerular Filt Rate 57.6 mL/min (>60); Glucose 118 mg/dL (80-110); HEMOLYSIS 23 (0-50); Lipase 153 U/L (23-300); Potassium 4.1 mmol/L (3.4-5.1); Sodium 137 mmol/L (137-145); Total Protein 7.2 g/dL (6.3-8.2)
[2021-07-28 22:17] LABS: NT-proBNP (BNP-Adult 18+) 3110 pg/mL (<450); Troponin I 0.013 ng/mL (0.01-0.034)
[2021-07-28 22:30] VITALS: PULSE 65; O2SAT 94
[2021-07-28 23:00] VITALS: BP 164/82; PULSE 72; O2SAT 95
--- NOTE | 2021-07-28 23:10 | ED.EXTPRO ---
HPI - Extremity Problem General Chief complaint: Extremity Problem,Nontraumatic Stated complaint: Edema, Right Foot Time Seen by Provider: 07/28/21 21:40 Source: patient Mode of arrival: Ambulatory History of Present Illness HPI Narrative: Patient is a 75-year-old male with history of congestive heart failure with defibrillator on warfarin is presenting today with increasing leg swelling and redness specifically more the right leg. He says it does hurt to walk on the bottom of his foot because of the swelling. He tries to put on compression socks but because is legs show swollen is very difficult. He has noticed increased redness of his right leg and right foot. No fevers or chills. He does take torsemide but is noncompliant and is only takes it once a day. He denies any chest pain shortness of breath, orthopnea, fever or chills. Related Data Home Medications Medication Instructions Recorded Confirmed cholecalciferol (vitamin D3) 50 50 mcg PO DAILY #0 08/17/11 01/13/21 mcg (2,000 unit) capsule (Vitamin D3) cyanocobalamin (vitamin B-12) 1,000 mcg PO DAILY 03/15/20 01/13/21 1,000 mcg tablet (Vitamin B-12) warfarin 3 mg tablet 3 mg PO QDAY tab 05/12/21 06/14/21 Previous Rx's Medication Instructions Recorded lisinopril 10 mg tablet 30 mg PO QDAY #90 tab 06/24/18 lovastatin 20 mg tablet See Rx Instructions .ROUTE 11/22/20 .COMPLEX #90 tablet torsemide 20 mg tablet 40 mg PO DAILY #30 tab 05/05/21 carvedilol 12.5 mg tablet See Rx Instructions .ROUTE 05/18/21 .COMPLEX #270 tablet hydrocodone 10 mg-acetaminophen 1 tab PO BEDTIME PRN #30 tab 07/19/21 325 mg tablet cephalexin 500 mg capsule 500 mg PO BID 7 Days #14 cap 07/29/21 Allergies Allergy/AdvReac Type Severity Reaction Status Date / Time No Known Drug Allergies Allergy Verified 01/13/21 15:29 Review of Systems Review of Systems Narrative: GENERAL: Denies chills, fatigue, malaise, fever, sweats, travel HEENT: Denies sinus pain, ear pain, sore throat, difficulty swallowing, neck pain RESPIRATORY: Denies dyspnea, cough, wheezing, hemoptysis, sputum. CARDIOVASCULAR: Denies chest pain, palpitations, orthopnea, edema GASTROINTESTINAL: Denies nausea, vomiting, abdominal pain, diarrhea, constipation, melena. : Denies dysuria, frequency, incontinence, hematuria, urinary retention, flank pain. MUSCULOSKELETAL: Denies weakness, joint pain, or bony pain SKIN: No rash, no erythema, no pruritus NEUROLOGIC: Denies weakness, dizziness, headache, numbness, change in speech, confusion PSYCHIATRIC: No concerning psychosocial issues. 12 point review of systems is negative except for those stated above and HPI Patient History Medical History (Updated 07/29/21 @ 00:16 by Stephanie Aguero DO) Acne (~1956) Atrial fibrillation (~2005) Chicken pox (~1958) Diastolic heart failure (~2009) Eczema (~1976) Essential hypertension Fractures (~1987) GI bleeding (~2012) Gout (~2006) Herpes (~1999) Mixed hyperlipidemia Mumps (~1966) Presence of implantable cardioverter-defibrillator (ICD) (03/23/15) Recurrent sinusitis (~2004) Skin cancer (~2012) Vision disorder (~1951) Surgical History Anesthesia History of hip replacement (~2004) History of hip replacement (~2005) History of tonsillectomy (~1951) Pacemaker (~2010) Status post appendectomy (~1954) Status post hernia repair (~2010) Family History Father Heart disease Stroke Grandfather Heart disease Mother Heart disease Hypertension Grandfather Heart disease Grandmother Heart disease Brother No problems noted. Social History household members: significant other Smoking Status: Former smoker alcohol intake: current Smoking Status: Former smoker alcohol intake frequency: 0-2 drinks per day Substance Use Type: does not use Exam Initial Vital Signs Initial Vital Signs: Vital Signs Pulse Rate 84 07/28/21 21:14 Blood Pressure 170/92 H 07/28/21 21:14 Pulse Oximetry 97 07/28/21 21:14 GENERAL: Chronically ill 75-year-old male HEENT: Head atraumatic,EOMI, pupils reactive, face symmetric, moist mucous membranes CARDIOVASCULAR: Regular rate and rhythm without murmurs, rubs or gallops. RESPIRATORY: Breath sounds equal bilaterally, no wheezes rales or rhonchi. ABDOMEN: Soft, nontender. Normoactive bowel sounds all 4 quadrants. No guarding or rebound. EXTREMITIES: Normal range of motion, no clubbing+ 3 bilateral pitting edema NEUROLOGICAL: Alert and oriented x4.Normal gait and speech. SKIN: Lower extremities chronic wounds right leg is mildly erythematous is from full it to about mid leg, non circumferential blanchable Course Orders Ordered: ED Orders 07/28/21 21:40 XR chest 1V Stat EKG-12 Lead Stat 07/28/21 21:48 Complete Blood Count AUTO DIFF Stat Comprehensive Metabolic Panel Stat Lipase Stat NT-proBNP (BNP-Adult 18+) Stat Partial Thromboplastin Time Stat Prothrombin Time INR Stat Troponin & CK Cardiac Panel Stat Discontinued Medications Cefazolin Sodium (Cephalexin 250 Mg Prepack) 1 bottle MISC SEEINSTR ONE Stop: 07/29/21 00:23 Last Admin: 07/29/21 00:29 Dose: 2 cap Documented by: GURINDER Furosemide (Furosemide 40 Mg/4 Ml Vial) 40 mg IV NOW ONE Stop: 07/28/21 23:11 Last Admin: 07/28/21 23:21 Dose: 40 mg Documented by: TYRONE Vital Signs Vital signs: Vital Signs - 8 hr 07/28/21 21:14 07/28/21 21:30 07/28/21 22:00 Pulse Rate 84 72 78 Blood Pressure 170/92 H 172/91 H 176/86 H Pulse Oximetry 97 95 96 07/28/21 22:30 07/28/21 23:00 07/28/21 23:30 Pulse Rate 65 72 70 Blood Pressure 164/82 H 166/76 H Pulse Oximetry 94 95 94 07/29/21 00:00 Pulse Rate 68 Blood Pressure 167/79 H Pulse Oximetry 93 MDM - Extremity (Nontraumatic) Lab Data Result diagrams: 07/28/21 21:48 07/28/21 21:48 Labs: Lab Results 07/28/21 07/28/21 07/28/21 Range/Units 21:48 21:48 21:48 WBC 8.5 (4.5-11.0) X10^3/uL RBC 4.01 L (4.5-5.9) X10^6/uL Hgb 12.9 L (13.5-17.5) g/dL Hct 38.1 L (41-53) % MCV 95.1 (80-100) fL MCH 32.2 (26-34) PG MCHC 33.9 (30-36) % RDW 14.8 (11.6-14.8) % Plt Count 162 (150-400) X10^3/uL Neut % (Auto) 61.8 (50-75) % Lymph % (Auto) 22.5 L (25-40) % Brule % (Auto) 11.7 (3-14) % Eos % (Auto) 3.3 (2-4) % Baso % (Auto) 0.7 (0-2) % Neut # (Auto) 5300 (9489-8664) /uL Lymph # (Auto) 1900 (8665-8538) /uL Brule # (Auto) 1000 H (0-900) /uL Eos # (Auto) 300 (0-450) /uL Baso # (Auto) 100 (0-100) /uL PT 25.7 H (10.1-12.7) SECONDS INR 2.2 H (0.9-1.3) APTT 39 H (26.4-36.2) SECONDS Sodium 137 (137-145) mmol/L Potassium 4.1 (3.4-5.1) mmol/L Chloride 105 (98-107) mmol/L Carbon Dioxide 28 (22-32) mmol/L BUN 26 H (9-20) mg/dL Creatinine 1.22 (0.66-1.25) mg/dL Estimated GFR 57.6 L (>60) mL/min BUN/Creatinine Ratio 21.3 (6-22) Glucose 118 H (80-110) mg/dL Calcium 9.4 (8.4-10.2) mg/dL Total Bilirubin 1.5 H (0.2-1.3) mg/dL AST 32 (17-59) IU/L ALT 14 (<50) IU/L Alkaline Phosphatase 124 (38-126) U/L Total Creatine Kinase 84 (55-170) U/L CK-MB (CK-2) TNP CK-MB (CK-2) Rel Index TNP Troponin I 0.013 (0.01-0.034) ng/mL NT-Pro-B Natriuret Pep 3110 H (<450) pg/mL Total Protein 7.2 (6.3-8.2) g/dL Albumin 4.2 (3.5-5.0) g/dL Globulin 3.0 (1.7-4.1) g/dL Albumin/Globulin Ratio 1.4 (1.0-2.8) Lipase 153 (23-300) U/L Imaging Data Chest x-ray: Radiologist's Impression: PROCEDURE:? XR CHEST 1V ? INDICATIONS:? leg swelling ? TECHNIQUE:? One view of the chest was acquired.? ? COMPARISON:? [facility], CR, XR CHEST 1V, 11/21/2017, 21:25. ? FINDINGS:? ? Surgical changes and devices:? Left chest wall single lead AICD redemonstrated. ? Lungs and pleura:? Visualized lungs are clear.? The medial right lung apex is partially obscured by the patient's neck soft tissues.? No pleural effusions or definite pneumothorax.? ? Mediastinum:? Mediastinal contours are unchanged.? Heart size is enlarged. ? Bones and chest wall:? No suspicious bony lesions.? Overlying soft tissues appear unremarkable.? ? IMPRESSION:? ? 1. No definite acute cardiopulmonary disease. ? 2. No definite radiographic evidence of pulmonary edema.? ? ? Dictated by: Bradly Adams M.D. on 07/28/2021 at 22:58 ? ? ECG Data Interpretation: Normal sinus rhythm rate 83 narrow complex no ischemic changes MDM Narrative Medical decision making narrative: Patient has history of congestive heart failure he is noncompliant with his to Shefali him I would is presenting today with increasing lower extremity edema on the right leg is more erythematous. He has no leukocytosis he is afebrile at this time how his foot is actually quite red and I removed the slight infection there. He has a therapeutic INR I think less likely DVT. I discussed with patient it is imperative for him to take diuretics is a are prescribed. We discussed for him to take the 2nd dose earlier in the afternoon so he is not up urinating all night. He feels like this is a reasonable request and will do it. At this time will start patient on antibiotics and he is given 1 dose of Lasix in the ED and has urinated multiple times. Echo in 06/07/2021 shows EF of 45-50% with no significant change from prior No leukocytosis afebrile put definitely increased erythema especially in the foot. Will put him on Keflex, even helps improve. Along with increasing Discharge Plan Departure Patient Disposition: Home Clinical Impression: Bilateral edema of lower extremity Cellulitis Qualifiers: Site of cellulitis: extremity Site of cellulitis of extremity: lower extremity Laterality: right Qualified Code(s): L03.115 - Cellulitis of right lower limb Instructions: DI for Cellulitis -- Adult Activity Restrictions/Additional Instructions: *You have been diagnosed with cellulitis and lower extremity swelling *What to do: You must take your torsemide twice a day. Take it 1st thing in the morning and then afternoon around 1 or 2:00 p.m. this you will not be up all night urinating. Wear compression soft, elevate feet. *Continue to take medications as directed. Keflex 500 mg twice a day for 7 days--> [facility] 20 mg twice a day as prescribed *Follow up with your primary care provider in 2-3 days or call [phone] *Return to ER if you should have increasing swelling, redness, fever, body aches, chest pain, shortness of breath or any new, worsening or concerning symptoms Prescriptions: New cephalexin 500 mg capsule 500 mg PO BID 7 Days Qty: 14 0RF No Action cholecalciferol (vitamin D3) [Vitamin D3] 50 mcg (2,000 unit) Capsule 50 mcg PO DAILY Qty: 0 0RF lisinopril 10 mg tablet 30 mg PO QDAY Qty: 90 2RF lovastatin 20 mg tablet See Rx Instructions .ROUTE .COMPLEX Qty: 90 3RF Dose Instruction: take 1 tablet by mouth NIGHTLY Rx Instructions: take 1 tablet by mouth NIGHTLY carvedilol 12.5 mg tablet See Rx Instructions .ROUTE .COMPLEX Qty: 270 3RF Dose Instruction: take 1 and 1/2 tablets by mouth twice a day Rx Instructions: Take 1 and 1/2 tablets by mouth twice a day hydrocodone-acetaminophen 10-325 mg tablet 1 tab PO BEDTIME PRN (Reason: pain) Qty: 30 0RF Hold Instructions: CHange to #30 with next fill torsemide 20 mg tablet 40 mg PO DAILY Qty: 30 0RF Rx Instructions: per Dr. Paliwal warfarin 3 mg tablet 3 mg PO QDAY 0RF Rx Instructions: Take 1 tab (3mg) by mouth daily, or as directed. cyanocobalamin (vitamin B-12) [Vitamin B-12] 1,000 mcg Tablet 1,000 mcg PO DAILY 0RF Referrals: Robert Klein MD [Primary Care Provider] -
[2021-07-28] MEDS: FUROSEMIDE 40 MG/4 ML VIAL IV (23:21)
[2021-07-28 23:30] VITALS: BP 166/76; PULSE 70; O2SAT 94
[2021-07-29] VITALS: BP 167/79; PULSE 68; O2SAT 93
[2021-07-29] MEDS: cephALEXin 250 MG PREPACK 1 BOTTLE MISC (00:29)
== END 2021-07-29 00:37 | disposition home or self-care (01) ==
PROVIDERS: Emergency Provider Emergency Medicine; Family Provider Family Medicine; PCP Student in an Organized Health Care Education/Training Program
DX: L03.115 Cellulitis of right lower limb (principal); R60.0 Localized edema; I10 Essential (primary) hypertension; Z91.14 Patient's other noncompliance with medication regimen; Z87.891 Personal history of nicotine dependence
CPT/HCPCS: 36415; 71045; 80053; 82550; 83690; 83880; 84484; 85025; 85610; 85730; 93005; 93010; 96374; 99284; J1940

== ENCOUNTER → 2022-01-16 13:01 | Outpatient (CLI) | payer OTHER, SELFPAY | PROVIDERS: Family Provider Family Medicine; PCP Student in an Organized Health Care Education/Training Program; Referring Provider Student in an Organized Health Care Education/Training Program; Visit Provider Family Medicine | DX: I89.0 Lymphedema, not elsewhere classified (principal); R21 Rash and other nonspecific skin eruption; M79.672 Pain in left foot; R22.33 Localized swelling, mass and lump, upper limb, bilateral; I11.0 Hypertensive heart disease with heart failure; I50.20 Unspecified systolic (congestive) heart failure; I48.91 Unspecified atrial fibrillation; Z95.810 Presence of automatic (implantable) cardiac defibrillator | CPT/HCPCS: 99204; 99213 ==

== ENCOUNTER → 2022-01-16 15:00 | Outpatient (CLI) | payer OTHER, SELFPAY ==
--- NOTE | 2022-01-16 15:02 | DI.RAD.S_ITS ---
PROCEDURE: XR HAND RT MIN 3V INDICATIONS: BILATERAL HAND/JOINT PAIN TECHNIQUE: 3 views of the hand(s) acquired. COMPARISON: None. FINDINGS: Bones: Diffuse osteopenia. No acute fracture or dislocation. Severe polyarticular degenerative changes seen throughout the right hand. Severe joint space loss involving the metacarpophalangeal joints of the 2nd and 3rd fingers. Moderate degenerative joint space loss noted in the proximal interphalangeal and distal interphalangeal joints of the 2nd through 5th fingers. Moderate-severe degenerative changes noted in the metacarpophalangeal and interphalangeal joints of the right thumb. Severe degenerative changes of the 1st carpometacarpal joint. Degenerative changes of the distal radiocarpal joint. There are subchondral lucencies noted over the head of the 2nd and 3rd metacarpals. There also subchondral lucencies involving the distal scaphoid and distal radius. Small juxta-articular lucencies also noted over the distal aspect of the proximal phalanx of the 2nd through 5th fingers as well as the distal aspect of the middle phalanges of the 2nd through 5th fingers. Moderate degenerative changes of the distal radial ulnar joint. Suggestion of mild cortical erosions involving the head of the 2nd and 3rd metacarpals. Soft tissues: No suspicious soft tissue calcifications. Vascular calcifications are present. Chronic appearing ossification noted over the base of the right thumb metacarpal. Moderate soft tissue swelling of the right hand centered over the metacarpophalangeal joints as well as the proximal margins of the fingers. IMPRESSION: Right hand without acute fracture or dislocation. Severe polyarticular degenerative changes of the left hand and wrist as described above. A concurrent inflammatory arthropathy not excluded given presence of multiple foci of juxta-articular lucencies/subchondral lucencies as described above. Dictated by: Tunde Polk M.D. on 01/16/2022 at 16:39 Approved by: Tunde Polk M.D. on 01/16/2022 at 16:45
--- NOTE | 2022-01-16 15:02 | DI.RAD.S_ITS ---
PROCEDURE: XR HAND LT MIN 3V INDICATIONS: BILATERAL HAND/JOINT PAIN TECHNIQUE: 3 views of the hand(s) acquired. COMPARISON: None. FINDINGS: Bones: Diffuse osteopenia. Moderate-severe polyarticular degenerative changes seen throughout the left hand involving the metacarpophalangeal, proximal interphalangeal, and distal interphalangeal joints of all 5 fingers. Marginal osteophyte formation noted in the interphalangeal joints. These are most prominent in the distal interphalangeal joints. There are small juxta-articular lucencies involving the base of the left thumb metacarpal, head of the proximal phalanx of the 2nd through 5th fingers, head of the middle phalanges of the 2nd/4th /5th or fingers and head of the left thumb metacarpal. No evidence for cortical destruction or periosteal reaction. No acute fracture or dislocation. Severe degenerative changes of the 1st carpometacarpal joint. Soft tissues: No suspicious soft tissue calcifications. Moderate soft tissue swelling of the left 2nd, 3rd, and 5th fingers. IMPRESSION: Left hand without acute fracture or dislocation. Severe degenerative changes of the left hand as detailed above; however, an inflammatory arthropathy not excluded given presence of numerous juxta-articular lucencies may represent osseous erosions. Dictated by: Tunde Polk M.D. on 01/16/2022 at 16:34 Approved by: Tunde Polk M.D. on 01/16/2022 at 16:39
== END ==
PROVIDERS: Family Provider Family Medicine; PCP Student in an Organized Health Care Education/Training Program; Referring Provider Family Medicine; Visit Provider Family Medicine
DX: M25.542 Pain in joints of left hand (principal); M25.541 Pain in joints of right hand
CPT/HCPCS: 73130

== ENCOUNTER → 2022-02-02 10:04 | Outpatient (CLI) | payer OTHER, SELFPAY ==
[2022-02-02 12:27] LABS: Uric Acid 8.5 mg/dL (3.5-8.5)
== END ==
PROVIDERS: Family Provider Family Medicine; PCP Student in an Organized Health Care Education/Training Program; Referring Provider Dermatology; Visit Provider Dermatology
DX: R21 Rash and other nonspecific skin eruption (principal)
CPT/HCPCS: 36415; 84550

== ENCOUNTER → 2022-02-23 11:39 | Outpatient (CLI) | payer OTHER, SELFPAY ==
[2022-02-23 12:43] LABS: INR 2.6 (0.9-1.3); Prothrombin Time 29.3 SECONDS (10.1-12.7)
[2022-02-23 12:54] LABS: Alanine Aminotransferase 12 IU/L (<50); Albumin 3.8 g/dL (3.5-5.0); Albumin Globulin Ratio 1.3 (1.0-2.8); Alkaline Phosphatase 170 U/L (38-126); Aspartate Aminotransferase 25 IU/L (17-59); BUN Creatinine Ratio 19.4 (6-22); Bilirubin Total 0.9 mg/dL (0.2-1.3); Blood Urea Nitrogen 21 mg/dL (9-20); Calcium 8.8 mg/dL (8.4-10.2); Carbon Dioxide 23 mmol/L (22-32); Chloride 109 mmol/L (98-107); Estimated Glomerular Filt Rate > 60 mL/min (>60); Globulin 2.9 g/dL (1.7-4.1); Glucose 125 mg/dL (80-110); HEMOLYSIS < 15 (0-50); Potassium 4.1 mmol/L (3.4-5.1); Sodium 137 mmol/L (137-145); Total Protein 6.7 g/dL (6.3-8.2)
[2022-02-23 13:56] LABS: Thyroid Stimulating Hormone 1.75 uIU/mL (0.47-4.68)
== END ==
PROVIDERS: Family Provider Family Medicine; PCP Student in an Organized Health Care Education/Training Program; Referring Provider Internal Medicine Cardiovascular Disease; Visit Provider Internal Medicine Cardiovascular Disease
DX: I11.0 Hypertensive heart disease with heart failure (principal); I50.22 Chronic systolic (congestive) heart failure; Z79.01 Long term (current) use of anticoagulants
CPT/HCPCS: 36415; 80053; 83735; 84443; 85610

== ENCOUNTER → 2022-06-09 09:06 | Outpatient (CLI) | payer OTHER, SELFPAY ==
[2022-06-09 11:14] LABS: Blood Urea Nitrogen 23 mg/dL (9-20); Carbon Dioxide 31 mmol/L (22-32); Chloride 102 mmol/L (98-107); HEMOLYSIS < 15 (0-50); Potassium 3.8 mmol/L (3.4-5.1); Sodium 139 mmol/L (137-145)
[2022-06-09 11:15] LABS: BUN Creatinine Ratio 20.4 (6-22); Calcium 9.1 mg/dL (8.4-10.2); Estimated Glomerular Filt Rate > 60 mL/min (>60); Glucose 112 mg/dL (80-110)
== END ==
PROVIDERS: Family Provider Family Medicine; PCP Student in an Organized Health Care Education/Training Program; Referring Provider Internal Medicine Cardiovascular Disease; Visit Provider Internal Medicine Cardiovascular Disease
DX: I50.22 Chronic systolic (congestive) heart failure (principal)
CPT/HCPCS: 36415; 80048